=== PATIENT | male | born 1930 | race Caucasian/White ===

== ENCOUNTER 2016-12-31 13:27 | Inpatient (IN) | payer OTHER, BC ==
--- NOTE | ~2016-12-31 | HC ---
[facility] [place] [address] CONSULTATION Name: DIMPLE PADILLA Room #: 214-P [facility] IN M.R.#: [id number] Admission: 12/31/16 Attend Phys: Berto Parks MD, Discharge: 01/03/17 Date of : 28 Report #: [id number] THIS REPORT FOR: //name// CC: Zach Parks DATE OF SERVICE: 01/01/2017 HISTORY OF PRESENT ILLNESS: The patient is an 86-year-old white male who was admitted with increased shortness of breath. He has a history of severe aortic stenosis. He was noted to have congestive heart failure with cardiology involved and has a video swallow study that is pending. CTA does not reveal pulmonary embolism. He has been given some Lasix to help with his dyspnea. We are seeing him in rehabilitation medicine consultation. PAST MEDICAL HISTORY: Includes COPD, hypertension, coronary artery disease status post stenting, atrial fibrillation, peripheral vascular disease, abdominal aortic and status post stent graft. He is noted to be on O2 at 3 liters at night with p.r.n. during the day. MEDICATIONS: Please see the full medication listing. SOCIAL HISTORY: Lives in a house with his , was premorbidly independent with ADLs, did not utilize any assist device. REVIEW OF SYSTEMS: Did not offer any current complaints of chest pain, shortness of breath or abdominal discomfort. He notes that he does get short of breath with increased activity and does not have the stamina that he used to have. No focal extremity pain complaints. FAMILY HISTORY: Positive for ETOH usage. PHYSICAL EXAMINATION: GENERAL: An 86-year-old white male, very pleasant, in no distress. VITAL SIGNS: Last recorded temperature 97.7, pulse 72, respirations 16, and blood pressure 111/58. NEUROLOGIC: Alert, oriented, hard of hearing. Facies are symmetric. Functional range of motion of both upper extremities with good strength 5-/5. Lower extremities, no focal calf swelling. DTRs are trace to 1. Good strength. I did get him up, sit to stand, which was just contact guard from the chair and he ambulated in the room with me without gait aids with standby and did quite well with a normal appearing gait and hiro, no obvious balance deficits. In occupational therapy, he was noted to be able to don and doff his socks and shoes. IMPRESSION: An 86-year-old white male with the following problem list: [address] [address] CONSULTATION Name: PADILLADIMPLE D Room #: 214-P [facility] IN [facility]#: [id number] Admission: 12/31/16 Attend Phys: Berto Parks MD, Discharge: 01/03/17 Date of : 28 Report #: [id number] 1. Medical complexity with generalized debilitation. 2. Severe aortic stenosis. 3. Dyspnea of uncertain etiology. He has been receiving Lasix as per Cardiology. 4. Abdominal aortic aneurysm status post graft repair. 5. Coronary artery disease status post stenting. 6. Chronic obstructive pulmonary disease. 7. Hypertension. 8. Atrial fibrillation. 9. Hypercholesterolemia. PLAN: He did quite well with occupational therapy and was able to transfer with supervision, could bath to his feet, and don and doff his socks and shoes. Occupational therapy is actually signed off. Physical therapy has not seen him yet and speech therapy has just completed the video swallow study. My impression is that he is going to be too high level to warrant an acute 5-North inpatient rehabilitation stay, but we will continue to follow along with you for now. I encouraged him to continue to work with the therapist during his remains hospitalization to further improve his overall strength and endurance. Again, we will follow along with you for now. <ELECTRONICALLY SIGNED> By: Jose Ray MD 01/22/17 1227 1213 0432 Jose Ray MD /PMT
--- NOTE | ~2016-12-31 | 2DMMODE ---
[facility] [place] [place] [address] 2 D/M-MODE ECHOCARDIOGRAM Name: DIMPLE PADILLA Room #: 214-P [facility] IN ..#: [id number] Admission: 12/31/16 Attend Phys: Berto Parks, Discharge: Date of : 28 Date of Service: 12/31/16 1740 Report #: [id number] THIS REPORT FOR: //name// APPROVED REPORT Study performed: 12/31/2016 14:18:04 EXAM: Comprehensive 2D, Doppler, and color-flow Echocardiogram Patient Location: Bedside Room #: 214 Status: routine BSA: 2.00 HR: 85 bpm Rhythm: Atrial Fibrillation Other Information Study Quality: Adequate Technically limited study due to lung disease, body habitus. Indications Short of breath, aortic stensis. Hx: COPD, Afib 2D Dimensions RVDd: 37.66 mm LVEF(%): 48.90 (>50%) IVSd: 11.95 (7-11mm) LVOT Diam: 23.13 (18-24mm) LVDd: 44.42 mm PWd: 13.03 (7-11mm) LVDs: 33.52 (25-40mm) Aortic Root: 33.70 mm Li's LVEF: 48.90 % Volumes Left Atrial Volume (Systole) Single Plane 4CH: 53.95 mL Single Plane 2CH: 45.24 mL Aortic Valve AoV Peak Eriberto.: 4.20 m/s AO Peak Gr.: 70.54 mmHg LVOT Max P.51 mmHg AO Mean Gr.: 45.63 mmHg AO V2 Mean: 3.26 m/s LVOT Max V: 0.61 m/s AO V2 VTI: 92.94 cm MARYBETH Vmax: 0.61 cm2 AI Vmax: 4.01 m/s [facility] [place] [address] 2 D/M-MODE ECHOCARDIOGRAM Name: DIMPLE PADILLA Room #: 214-P [facility] IN M.R.#: [id number] Admission: 12/31/16 Attend Phys: Berto Parks, Discharge: Date of : 28 Date of Service: 12/31/16 1740 Report #: [id number] [place]: 3.04 m/s2 AI PHT: 383.49 ms Mitral Valve MV Decel. Time: 150.29 ms MV E Max Eriberto.: 0.96 m/s Pulmonary Valve PV Peak Eriberto.: 0.60 m/s PV Peak Gr.: 1.45 mmHg Tricuspid Valve TR Peak Eriberto.: 3.30 m/s RAP Estimate: 5.00 mmHg TR Peak Gr.: 43.80 mmHg Left Ventricle The left ventricle is normal size. There is normal LV segmental wall motion. Mild concentric left ventricular hypertrophy. The left ventricular systolic function is normal. LVEF is 55%. This study is not technically sufficient to allow evaluation of the LV diastolic function due to atrial fibrillation. Right Ventricle The right ventricle is normal size. The right ventricular systolic function is normal. Atria Left atrium is dilated. Right atrium is dilated. Aortic Valve Aortic valve is heavily calcified. Moderate aortic regurgitation. There is severe valvular aortic stenosis. Calculated aortic valve area is 0.6 cm2 with maximum pressure gradient of 71 mmHg and mean pressure gradient of 46 mmHg. Mitral Valve Mitral valve leaflets are mildly thickened. Mild mitral annular calcification. Mild to moderate mitral regurgitation. No evidence of mitral valve stenosis. Tricuspid Valve The tricuspid valve is normal in structure. There is moderate tricuspid regurgitation. The right atrial pressure is estimated at 5 mmHg. There is moderate pulmonary hypertension with an estimated PAP of 50mmHg. Pulmonic Valve [address] [address] 2 D/M-MODE ECHOCARDIOGRAM Name: DIMPLE PADILLA Room #: 214-P [facility] IN [facility]#: [id number] Admission: 12/31/16 Attend Phys: Berto Parks, Discharge: Date of : 28 Date of Service: 12/31/16 1740 Report #: [id number] The pulmonary valve is normal in structure. Trace pulmonic regurgitation. Great Vessels The aortic root is normal in size. Ascending aorta is not well visualized. IVC is normal in size and collapses >50% with inspiration. Pericardium There is no pericardial effusion. <Conclusion> The left ventricular systolic function is normal. There is normal LV segmental wall motion. LVEF 55%. Both atria are dilated. Aortic valve is heavily calcified and severely stenotic Calculated aortic valve area is 0.6 cm2 with maximum pressure gradient of 71 mmHg and mean pressure gradient of 46 mmHg. Moderate aortic regurgitation. Mitral valve leaflets are mildly thickened. Mild mitral annular calcification. Mild to moderate mitral regurgitation. Pulmonary artery pressure of 50mmHg There is no pericardial effusion. <ELECTRONICALLY SIGNED> By: Oh Corets MD, FACC 12/31/161739 39 39 Oh Cortes MD, FACC /INF
--- NOTE | ~2016-12-31 | HC ---
[facility] [place] [address] CONSULTATION Name: DIMPLE PADILLA Room #: 214-P [facility] IN M.R.#: [id number] Admission: 12/31/16 Attend Phys: Berto Parks MD, Discharge: 01/03/17 Date of : 28 Report #: [id number] THIS REPORT FOR: //name// CC: Zach Parks DATE OF SERVICE: 12/31/2016 REASON FOR CONSULTATION: Dyspnea. IMPRESSION: 1. Dyspnea, question etiology, with elevated BNP and history of aortic stenosis, question volume issue. 2. copd 3. Hypertension. 4. Coronary artery disease. 5. 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 6. Atrial fibrillation. PLAN: Atrovent q. 6 and albuterol p.r.n. Agree with diuresis. We will check a D-dimer if elevated. We will do a CT PE protocol. Await echo to check for pulmonary hypertension. He also has sleep apnea and we will try to get his home machine, otherwise, we will do an auto titrating CPAP here. We will do an exercise oximetry in a.m. I do not get a history of pneumonia, so we will not start antibiotics. HISTORY OF PRESENT ILLNESS: An 86-year-old male comes in with progressive shortness of breath over the last month, can walk 50-60 feet without feeling short of breath. PAST MEDICAL HISTORY: 1. Hypertension. 2. Peripheral vascular disease. PAST SURGICAL HISTORY: Include aortic aneurysm repair, stent in coronary arteries, total thyroidectomy, substernal goiter, skin cancer removal, ruptured ____ with surgery repair. SOCIAL HISTORY: Positive tobacco in the distant past. FAMILY HISTORY: Positive ETOH use. HOME MEDICATIONS: Per chart include metoprolol 50 mg daily, aspirin 81 mg daily, Remeron 15 mg at bedtime, levothyroxine 88 mcg daily. REVIEW OF SYSTEMS: No fever, chills, night sweats. No hemoptysis or [facility] [address] [place] [address] CONSULTATION Name: RANDYDIMPLE Parvez Room #: 214-P [facility]#: [id number] Admission: 12/31/16 Attend Phys: Berto Parks MD, Discharge: 01/03/17 Date of : 28 Report #: [id number] hematemesis. No definite chest pain. PHYSICAL EXAMINATION: VITAL SIGNS: Temperature 97.3, pulse 93, respirations 16, BP 138/77. EYES: Negative icterus. NECK: Negative JVD. LUNGS: Showed decreased breath sounds. No wheeze or rhonchi. HEART: Regular with murmur. ABDOMEN: Bowel sounds present. EXTREMITIES: Show no clubbing, cyanosis or edema. LABORATORY DATA: Chest x-ray showed no acute. proBNP 4341. White count 10.3, hemoglobin 14, platelets 153, bands 1. BUN 17, creatinine 1, total bilirubin 1.1. <ELECTRONICALLY SIGNED> By: Michael Kilgore MD 01/04/17 0849 1711 00 Michael Kilgore MD /nt
[~2016-12-31 13:27] MED LIST: ASPIR 8181 MG PO; AUGMENTIN 875875 MG PO; LOPRESSOR25 PO; METHIMAZOLE5 MG PO; MUCINEX TA600 MG/TA2 PO; PANTOPRAZOLE SO40 M1 PO; PROTONIX 20 MG20 M1 PO; REMERON15 MG PO; SAVAYSA15 MG PO; TUMS PO
[2016-12-31 14:28] LABS: HEMATOCRIT 41.9 % (42.0-52.0); MCHC 33.5 g/dL (28.0-37.0); MCV 98.6 fL (80.0-100.0); PLATELET COUNT 153 thou/uL (150-400); RBC 4.25 mil/uL (4.50-6.00); RDW 13.9 % (10.5-14.5); WBC 10.3 thou/uL (4.0-11.0)
[2016-12-31 14:35] LABS: MANUAL DIFF YES
[2016-12-31 14:44] LABS: ALBUMIN 3.1 g/dL (3.4-5.0); CALCIUM 9.1 mg/dL (8.5-10.1); POTASSIUM 4.6 mmol/L (3.5-5.1); TOTAL BILIRUBIN 1.1 mg/dL (<0.1-1.0); TOTAL PROTEIN 7.3 g/dL (6.4-8.2)
[2016-12-31 15:12] LABS: ABSOLUTE NEUTROPHILS 8.5 thou/uL (1.4-8.2); TOTAL CELL COUNT 100
[2016-12-31 15:14] LABS: ANISOCYTOSIS SLIGHT; MICROCYTES SLIGHT; POLYCHROMASIA SLIGHT
[2016-12-31 15:46] VITALS: BP 138/77
[2016-12-31] MEDS ORDERED: LEVOTHYROXIN0.088 MG PO (16:56)
[2016-12-31] MEDS ORDERED: TOPROL XL25 MG PO (16:57)
[2016-12-31 17:11] LABS: PROTIME 10.6 Seconds (9.3-11.4)
[2016-12-31 17:20] LABS: ABG SAMPLE TYPE ARTERIAL; BE(vivo) -0.1 mmol/L (-2 to +3); HCO3 24.4 mmol/L (22.0-26.0); LACTATE 1.12 mmol/L (0.5-2.0); O2(CT) 18.3 mL/dL (15.0-23.0); O2Hb 92.9 % (92.0-98.0); PCO2 39.2 mmHg (35.0-45.0); pH 7.412 (7.360-7.450); sO2 94.7 % (92.0-98.0); tCO2 25.6 mmol/L (24.0-30.0)
[2016-12-31 17:21] LABS: ABG COMMENT NO COMPLICATIONS.; STICK SITE R.RADIAL
[2016-12-31 19:42] VITALS: BP 126/69
[2017-01-01 00:43] VITALS: BP 120/60
[2017-01-01 04:45] VITALS: BP 143/72
[2017-01-01 07:02] VITALS: BP 127/66
[2017-01-01 09:57] LABS: ABSOLUTE NEUTROPHILS 6.3 thou/uL (1.4-8.2); BASOPHILS 0.7 % (0.0-2.0); EOSINOPHILS 2.7 % (0.0-3.0); HEMATOCRIT 40.9 % (42.0-52.0); LYMPHOCYTES 11.2 % (24.0-44.0); MCHC 34.3 g/dL (28.0-37.0); MCV 96.4 fL (80.0-100.0); MONOCYTES 7.5 % (1.0-8.0); PLATELET COUNT 171 thou/uL (150-400); POLYS 77.9 % (36.0-66.0); RBC 4.24 mil/uL (4.50-6.00); RDW 13.5 % (10.5-14.5); WBC 8.1 thou/uL (4.0-11.0)
[2017-01-01 10:02] LABS: MANUAL DIFF NO
[2017-01-01 11:33] VITALS: BP 111/58
[2017-01-01 16:02] VITALS: BP 118/62
[2017-01-01 19:48] VITALS: BP 113/55
[2017-01-02 02:53] VITALS: BP 114/51
[2017-01-02 07:45] VITALS: BP 113/62
[2017-01-02 10:13] LABS: CALCIUM 9.2 mg/dL (8.5-10.1); CREATININE 1.2 mg/dL (0.7-1.3); POTASSIUM 3.7 mmol/L (3.5-5.1)
[2017-01-02 11:41] VITALS: BP 117/55
[2017-01-02 15:38] VITALS: BP 104/65
[2017-01-02 19:52] VITALS: BP 117/55
[2017-01-03 03:24] VITALS: BP 119/60
[2017-01-03 04:24] LABS: CALCIUM 8.6 mg/dL (8.5-10.1); CREATININE 1.2 mg/dL (0.7-1.3); POTASSIUM 3.5 mmol/L (3.5-5.1)
[2017-01-03 08:14] VITALS: BP 122/64
[2017-01-03] MEDS ORDERED: METOPROLOL SUCC50 MG PO (08:38)
[2017-01-03] MEDS ORDERED: LASIX 40 MG TAB40 M1 PO (08:38)
== END 2017-01-03 13:07 | DRG 292 ==
LOC: 2N 13:27
PROVIDERS: Internal Medicine Cardiovascular Disease; Internal Medicine Pulmonary Disease; Nurse Practitioner Adult Health
DX: I11.0 Hypertensive heart disease with heart failure (principal); E44.1 Mild protein-calorie malnutrition; I50.43 Acute on chronic combined systolic (congestive) and diastolic (congestive) heart failure; J44.9 Chronic obstructive pulmonary disease, unspecified; I10 Essential (primary) hypertension; I25.10 Atherosclerotic heart disease of native coronary artery without angina pectoris; E89.0 Postprocedural hypothyroidism; I48.91 Unspecified atrial fibrillation; I73.9 Peripheral vascular disease, unspecified; I35.0 Nonrheumatic aortic (valve) stenosis; I71.4 Abdominal aortic aneurysm, without rupture; E78.00 Pure hypercholesterolemia, unspecified; I65.23 Occlusion and stenosis of bilateral carotid arteries; R13.10 Dysphagia, unspecified; Z95.5 Presence of coronary angioplasty implant and graft; Z85.828 Personal history of other malignant neoplasm of skin; Z87.891 Personal history of nicotine dependence
CPT/HCPCS: 10081